=== PATIENT | female | born 1965 | race Caucasian/White ===

== ENCOUNTER → 2019-11-15 | Outpatient (CLI) | payer OTHER ==
--- NOTE | 2019-11-17 06:18 | MR ---
EXAMINATION TYPE: MR knee RT wo con DATE OF EXAM: 11/15/2019 COMPARISON: None HISTORY: Right knee pain and swelling. Had fluid drained about 3 weeks ago. TECHNIQUE: Multiplanar, multisequence imaging of the right knee is performed without IV contrast. FINDINGS: MEDIAL MENISCUS: Anterior and posterior horns are intact without tear. LATERAL MENISCUS: Anterior and posterior horns are intact without tear. CRUCIATE LIGAMENTS: The anterior and posterior cruciate ligaments are intact and unremarkable. COLLATERAL LIGAMENTS: The medial collateral ligament is intact. The lateral collateral ligament compl ex is strained with partial tearing. EXTENSOR MECHANISM: Visualized quadriceps and patellar tendons are intact. EFFUSION: Large suprapatellar joint effusion. POPLITEAL CYST: No popliteal/koroma cyst. TRICOMPARTMENT SPACES: Minimal degenerative spurring of the medial and lateral compartments. CARTILAGE: There is some fraying of the mid medial femoral condyle and thinning of the lateral anteri or cartilage of the medial tibial plateau. BONE MARROW SIGNAL: No focal abnormal marrow signal is appreciated. OTHER: No additional significant abnormality is appreciated. IMPRESSION: 1. Strain and partial tearing of the lateral collateral ligamentous complex. 2. Large suprapatellar joint effusion. 3. Mild osteoarthritic changes.
== END | disposition home or self-care (01) ==
LOC: RADMRIMAIN 08:23
PROVIDERS: ATTEND Orthopaedic Surgery
DX: S83.421A Sprain of lateral collateral ligament of right knee, initial encounter (principal); M17.11 Unilateral primary osteoarthritis, right knee